=== PATIENT | female | born 1970 | race African-American/Black ===

== ENCOUNTER 2025-01-31 10:08 | Outpatient (REF) | payer OTHER, SELFPAY ==
[2025-01-31 18:46] LABS: MANUAL DIFF FLAG NO
[2025-01-31 19:09] LABS: Basophils Percent Auto 0.5 % (0-2); Eosinophils Absolute Auto 0.1 X10*3/uL (0.0-0.4); Hematocrit 38.3 % (37.0-47.0); Lymphocytes Absolute Auto 1.2 X10*3/uL (1.2-4.9); Lymphocytes Percent Auto 28.9 % (20-40); Mean Corpuscular HGB Conc 31.3 g/dl (31.0-35.0); Mean Corpuscular Hemoglobin 27.9 pg (27.0-33.0); Mean Corpuscular Volume 89.1 fL (80.0-98.0); Monocytes Absolute Auto 0.6 X10*3/uL (0.1-1.2); Monocytes Percent Auto 15.1 % (2-11); Neutrophils Absolute Auto 2.2 x10*3/uL (2.0-8.3); Neutrophils Percent Auto 53.5 % (45-73); Platelet Count 248 X10*3/uL (160-400); Red Cell Distribution Width 12.9 % (11.0-16.0); White Blood Count 4.1 X10*3/uL (4.8-10.8)
[2025-01-31 19:27] LABS: Alanine Aminotransferase 23 U/L (0-31); Aspartate Amino Transferase 25 U/L (5-31); C Reactive Protein 0.26 mg/dL (< or = 0.50); Estimated Glomerular Filt Rate > 60
[2025-01-31 19:58] LABS: Erythrocyte Sedimentation Rate 22 MM/HR (0-20)
[2025-02-01 08:46] LABS: HBS Num1 0.95 mIU/mL (0-7.99); HBc Num1 0.06 S/CO (0.00-0.79); HBsAGNum1 0.28 S/CO (0.00-0.99); Hepatitis B Core Antibody Nonreactive (Nonreactive); Hepatitis B Surface Antigen Negative (Negative); ~HepC Num1 0.12 S/CO (0.00-0.79); ~Hepatitis B Surface Antibody NONREACTIVE (Nonreactive); ~Hepatitis C Antibody Nonreactive (Nonreactive)
[2025-02-03 06:19] LABS: TS Negative Control Passed; TS Panel A 0; TS Panel B 0; TS Positive Control Passed; TSpotTB Negative (Negative)
== END 2025-01-31 10:09 | disposition home or self-care (01) ==
LOC: HO.HKASLDS 10:08
PROVIDERS: PCP Internal Medicine; Visit Provider Internal Medicine Rheumatology
DX: M06.9 Rheumatoid arthritis, unspecified (principal); Z79.899 Other long term (current) drug therapy; Z79.60 Long term (current) use of unspecified immunomodulators and immunosuppressants
CPT/HCPCS: 36415; 82565; 84450; 84460; 85025; 85652; 86140; 86481; 86704; 86706; 86803; 87340

== ENCOUNTER 2025-01-31 10:08 | Outpatient (AMB) | payer OTHER, SELFPAY ==
--- NOTE | 2025-01-31 10:11 | A.OFFVIS_ITS ---
Vital Signs 01/31/25 10:13 Height 5 ft 7 in Weight 170 lb 6.677 oz BMI 26.7 BP 120/80 Blood Pressure Location Lt brachial Position Sitting Pulse 95 Pulse Source Pulse Oximeter Pulse Oximetry (%) 98 Oxygen Delivery Method Room Air Intake Visit Reasons: RA Intake Note: Patient presents today for RA. Accompanied by: Self / Same As Patient Allergies No Known Allergies Allergy (Verified 01/31/25 10:14) HPI HPI RA: Details: She has a URI with chest and nasal congestion. No fevers. She got laid off in June 2024. Gained 20lb. Increase pain in bilateral groins after prolonged sitting. No pain after prolonged lyning down and getting up. [facility] Medical History (Updated 01/31/25 @ 12:38 by Ahmet Young MD) Schwannoma of skin Hypothyroid Family History (Updated 01/26/25 @ 12:35 by April Mattson CMA) Father Heart disease Mother Rheumatoid arthritis Social History (Updated 01/26/25 @ 12:31 by April Mattson CMA) Household Members: Spouse and Children Review of Systems Const All systems reviewed & are unremarkable except as noted in HPI and below Physical Exam Vital Signs: Last Vital Signs Pulse 95 01/31/25 10:13 BP 120/80 01/31/25 10:13 Pulse Ox 98 01/31/25 10:13 Oxygen Delivery Method Room Air 01/31/25 10:13 BMI result Body Mass Index 26.7 Const Other: General: Comfortable CVS: RRR Respiratory: clear to auscultation bilaterally. Good respiratory effort Skin: No lesions seen MSK: No tenderness of any joint. No synovitis. No tenderness to palpate groin region. Normal range of motion of upper extremity and lower extremity. Assessment & Plan Assessment & Plan (1) Rheumatoid arthritis: Comment: Doing well on current regimen. Rheumatology history: Seropositive with positive rheumatoid factor 18, anti CCP antibody 222. She received left knee cortisone injection in November 2020. She has been on methotrexate since April 2021. Code(s): M06.9 - Rheumatoid arthritis, unspecified Category: Medical Plan: Continue methotrexate 15 mg once weekly Continue folic acid 1 mg daily Labs for monitoring of disease and high-risk medication ordered Return to clinic in 3 months (2) Other termite control servicer (current) drug therapy: Code(s): Z79.899 - Other termite control servicer (current) drug therapy Category: Medical Plan: See above (3) Hip pain: Comment: Bilateral after prolonged sitting and then getting up, self-limited. We discussed conservative management. Code(s): M25.559 - Pain in unspecified hip Category: Medical Plan: AAOS hip strengthening program given to patient If pain persists, I will obtain bilateral hip x-rays in order formal PT Return to clinic in 3 months Orders: Orders Erythrocyte Sedimentation Rate Today Z79.899 - Other half-way (current) drug therapy Hepatitis B,C Profile Today Z79.899 - Other termite control servicer (current) drug therapy Alanine Aminotransferase Today Z79.60 - intermediate school teacher (current) use of unspecified immunomodulators and immunosuppressants Aspartate Amino Transferase Today Z79.60 - intermediate school teacher (current) use of unspecified immunomodulators and immunosuppressants Complete Blood Count Auto Diff Today Z79.60 - [facility] (current) use of unspecified immunomodulators and immunosuppressants Creatinine Today Z79.60 - [facility] (current) use of unspecified immunomodulators and immunosuppressants C Reactive Protein Today Z79.899 - Other termite control servicer (current) drug therapy T Spot TB Today M06.9 - Rheumatoid arthritis, unspecified, Z79.899 - Other half-way (current) drug therapy Medications: New folic acid 1 mg PO DAILY 90 tabs 3RF Changed From methotrexate sodium 15 mg (6 x 2.5 mg) PO QWEEK 24 tabs 0RF To methotrexate sodium 15 mg (6 x 2.5 mg) PO QWEEK 72 tabs 0RF 12 weeks Coding Level of Care Code Est Pt Level 4 (74920) Complex EM visit Add On G2211 Diagnoses Rheumatoid arthritis M06.9 Other termite control servicer (current) drug therapy Z79.89 Hip pain M25.559
[2025-01-31 10:13] VITALS: BP 120/80; PULSE 95; O2SAT 98; BMI 26.7
--- OUTSIDE RECORDS SUMMARY | 2025-01-31 11:34 | XMS_ITS | Clinical Summary ---
Author Organization [facility] Address [address] [place] [address] Care Team Providers Care Vacuum Worker Name Role Phone Tae Moscoso MD Primary Care Provider +- [phone] Immunizations Name Administration Dates Next Due Covid-19 (Pfizer) Dilution Required 03/04/2021,0 02/13/2021 Social History Tobacco Use Types Packs/Day Years Used Date Smoking Tobacco: Never Assessed Sex and Gender Information Value Date Recorded Sex Assigned at Female 02/11/2021 3:03 PM EDT Gender Identity Not on file Sexual Orientation Not on file Job Start Date Occupation Industry Not on file Not on file Not on file Plan of Treatment Health Maintenance Due Date Last Done Comments Hepatitis B Vaccines (1 of 3 - 3-dose series) 1970 Hepatitis C Screening 1970 Depression Screening 1982 Preventative Health Evaluation 1988 DTap / Tdap / Td (1 - Tdap) 1989 Cervical Cancer Screening (Pap Smear) 1991 Colon Cancer Screening (Colonoscopy) 2015 Breast Cancer Screening (Mammogram) 2020 Shingrix-Zoster Vaccine (1 o f 2) 2020 COVID-19 Vaccine (2023-2 5 season) 2024 03/04/2021, 02/13/2021 Influenza Vaccine (#1) 2024 Pneumococcal Vaccine Aged Out No long er eligible based on patient's age to complete this topic RSV Ped < 20 months Aged Out No longe r eligible based on patient's age to complete this topic Care Teams Vacuum Worker Relationship Specialty Start Date End Date Tae Moscoso MD PCP - General Internal Medicine 05/11/18
== END 2025-01-31 10:39 | disposition home or self-care (01) ==
LOC: HO.RHES 10:08
PROVIDERS: PCP Internal Medicine; Visit Provider Internal Medicine Rheumatology
DX: M06.9 Rheumatoid arthritis, unspecified (principal); Z79.899 Other long term (current) drug therapy; M25.559 Pain in unspecified hip
CPT/HCPCS: 99214

== ENCOUNTER 2025-05-03 08:27 | Outpatient (REF) | payer OTHER, SELFPAY ==
[2025-05-03 18:19] LABS: Baso%MD 0.5 %; Hematocrit 37.2 % (37.0-47.0); Hemoglobin 11.6 g/dl (12.0-16.0); IG%MD 0.3 %; Lymph%MD 34.1 %; Mean Corpuscular HGB Conc 31.2 g/dl (31.0-35.0); Mean Corpuscular Volume 89.9 fL (80.0-98.0); Mean Platelet Volume 11.5 fL (9.4-12.3); Mono%MD 11.4 %; Neut%MD 50.7 %; Platelet Count 262 X10*3/uL (160-400); Red Blood Count 4.14 X10*6/uL (4.20-5.50); Red Cell Distribution Width 13.2 % (11.0-16.0); White Blood Count 3.7 X10*3/uL (4.8-10.8)
[2025-05-03 18:25] LABS: Alanine Aminotransferase 20 U/L (0-31); Aspartate Amino Transferase 24 U/L (5-31); C Reactive Protein 0.15 mg/dL (< or = 0.50); Estimated Glomerular Filt Rate > 60
[2025-05-03 19:01] LABS: Erythrocyte Sedimentation Rate 12 MM/HR (0-20)
[2025-05-03 19:19] LABS: Atypical Lymph Absolute Manual 0.1 x10*3/uL; Atypical Lymphs Percent Manual 3 % (0-6); Basophils Percent Manual 1 % (0-2); Eosinophils Percent Manual 1 % (0-4); Lymphocytes Absolute Manual 1.5 X10*3/uL (1.2-4.9); Lymphocytes Percent Manual 40 % (20-40); Monocytes Absolute Manual 0.2 X10*3/uL (0.1-1.2); Monocytes Percent Manual 5 % (2-11); Neutrophils Percent Manual 50 % (45-73)
[2025-05-03 19:20] LABS: Band Neutrophils Percent 0 % (3-5); Neutrophils Absolute Manual 1.9 X10*3/uL (2.0-8.3); Platelet Estimate NORMAL (NORMAL); Platelet Morphology Comment NORMAL; RBC Morphology NORMAL
== END 2025-05-03 08:28 | disposition home or self-care (01) ==
LOC: HO.HKASLDS 08:27
PROVIDERS: PCP Internal Medicine; Visit Provider Internal Medicine Rheumatology
DX: M06.9 Rheumatoid arthritis, unspecified (principal); M25.552 Pain in left hip; M25.551 Pain in right hip; Z79.631 Long term (current) use of antimetabolite agent; Z79.899 Other long term (current) drug therapy
CPT/HCPCS: 36415; 82565; 84450; 84460; 85007; 85027; 85652; 86140

== ENCOUNTER 2025-05-03 08:27 | Outpatient (AMB) | payer OTHER, SELFPAY ==
--- NOTE | 2025-05-03 08:28 | MHC.OFFVIS ---
Vital Signs 05/03/25 08:29 Height 5 ft 7 in Weight 169 lb 8 oz BMI 26.5 BP 120/80 Blood Pressure Location Lt brachial Position Sitting Pulse 87 Pulse Source Pulse Oximeter Pulse Oximetry (%) 98 Oxygen Delivery Method Room Air Intake Visit Reasons: 3 Months Intake Note: Patient presents today for RA. Accompanied by: Self / Same As Patient Allergies No Known Allergies Allergy (Verified 05/03/25 08:28) HPI HPI 3 Months: Details: Doing well. No joint pain or joint swelling. No recent infections. [facility] Medical History Schwannoma of skin Hypothyroid Family History Father Heart disease Mother Rheumatoid arthritis Social History Household Members: Spouse and Children Physical Exam Vital Signs: Last Vital Signs Pulse 87 05/03/25 08:29 BP 120/80 05/03/25 08:29 Pulse Ox 98 05/03/25 08:29 Oxygen Delivery Method Room Air 05/03/25 08:29 BMI result Body Mass Index 26.5 Const Other: General: Comfortable CVS: RRR Respiratory: clear to auscultation bilaterally. Good respiratory effort Skin: No lesions seen MSK: No tenderness of any joint. No synovitis. No tenderness to palpate groin region. Normal range of motion of upper extremity and lower extremity. Assessment & Plan Assessment & Plan (1) Rheumatoid arthritis: Comment: Doing well on current regimen. Recent labs reviewed with patient, which revealed mild leukopenia and mild elevation in ESR, which may be related to URI that patient had in January. Rheumatology history: Seropositive with positive rheumatoid factor 18, anti CCP antibody 222. She received left knee cortisone injection in November 2020. She has been on methotrexate since April 2021. Code(s): M06.9 - Rheumatoid arthritis, unspecified Category: Medical Plan: Continue methotrexate 15 mg once weekly Continue folic acid 1 mg daily Labs for monitoring of disease and high-risk medication ordered. Return to clinic in 3 months (2) Other long term acute care registered nurse (current) drug therapy: Code(s): Z79.899 - Other assisted (current) drug therapy Category: Medical Plan: See above (3) Hip pain: Comment: Bilateral after prolonged sitting and then getting up, self-limited. Range of motion is normal. Resolved with home exercise program. Code(s): M25.559 - Pain in unspecified hip Category: Medical Plan: Discussed the importance of having a regular exercise routine. She will try to keep a consistent routine daily, especially since she is working from home. Return to clinic in 3 months Coding Level of Care Code Est Pt Level 4 (77741) Complex EM visit Add On G2211 Diagnoses Rheumatoid arthritis M06.9 Other long term acute care registered nurse (current) drug therapy Z79.899 Hip pain M25.559
[2025-05-03 08:29] VITALS: BP 120/80; PULSE 87; O2SAT 98; BMI 26.5
--- OUTSIDE RECORDS SUMMARY | 2025-05-03 08:49 | XMS_ITS | Clinical Summary ---
Author Organization [facility] Address [address] [place] [address] Care Team Providers Care Flying Teacher Name Role Phone Tae Moscoso MD Primary Care Provider +- [phone] Immunizations Name Administration Dates Next Due Covid-19 [...] (1 o f 2) 2020 COVID-19 Vaccine ( - 2023-2 5 season) 2024 03/04/2021, 02/13/2021 Influenza Vaccine (Season Ended) 2025 Pneumococcal Vaccine Aged Out No long er eligible based on patient's age to complete this topic RSV Ped < 20 months Aged Out No longe r eligible based on patient's age to complete this topic Care Teams Flying Teacher Relationship Specialty Start Date End Date Tae Moscoso MD PCP - General Internal Medicine 05/11/18
== END 2025-05-03 08:56 | disposition home or self-care (01) ==
LOC: HO.RHES 08:27
PROVIDERS: PCP Internal Medicine; Visit Provider Internal Medicine Rheumatology
DX: M06.9 Rheumatoid arthritis, unspecified (principal); Z79.899 Other long term (current) drug therapy; M25.559 Pain in unspecified hip
CPT/HCPCS: 99214; G2211

== ENCOUNTER 2025-08-09 10:09 | Outpatient (AMB) | payer OTHER, SELFPAY ==
--- NOTE | 2025-08-09 10:13 | A.OFFVIS_ITS ---
Vital Signs 08/09/25 10:14 Height 5 ft 7 in Weight 165 lb 5.547 oz BMI 25.9 BP 120/80 Blood Pressure Location Rt brachial Position Sitting Pulse 67 Pulse Source Pulse Oximeter Pulse Oximetry (%) 100 Oxygen Delivery Method Room Air Intake Visit Reasons: 3 Months Intake Note: Patient presents today for RA. Accompanied by: Self / Same As Patient Allergies No Known Allergies Allergy (Verified 05/03/25 08:28) HPI HPI 3 Months: Details: Stretching before and after treadmill helped reduce hip pain. Sudden turn causes self-limited right groin pain. No joint swelling. No recent infections. She gained weight. [facility] Medical History Schwannoma of skin Hypothyroid Family History Father Heart disease Mother Rheumatoid arthritis Social History Household Members: Spouse and Children Physical Exam Vital Signs: Last Vital Signs Pulse 67 08/09/25 10:14 BP 120/80 08/09/25 10:14 Pulse Ox 100 08/09/25 10:14 Oxygen Delivery Method Room Air 08/09/25 10:14 BMI result Body Mass Index 25.9 Const Other: General: Comfortable CVS: RRR Respiratory: clear to auscultation bilaterally. Good respiratory effort Skin: No lesions seen MSK: Tender right groin region on palpation No synovitis. Normal range of motion of upper extremity and lower extremity. Assessment & Plan Assessment & Plan (1) Rheumatoid arthritis: Comment: Doing well on current regimen. Recent labs reviewed with patient, which revealed mild leukopenia and decrease in hemoglobin, which may be related to bone marrow suppression from methotrexate. Rheumatology history: Seropositive with positive rheumatoid factor 18, anti CCP antibody 222. She received left knee cortisone injection in November 2020. She has been on methotrexate since April 2021. Code(s): M06.9 - Rheumatoid arthritis, unspecified Category: Medical Plan: Continue methotrexate 15 mg once weekly Continue folic acid 1 mg daily Labs for monitoring of disease and high-risk medication ordered. I will consider increasing folic acid to 2 mg daily after reviewing labs. Return to clinic in 3 months (2) Other intermediate project manager (current) drug therapy: Code(s): Z79.899 - Other intermediate project manager (current) drug therapy Category: Medical Plan: See above (3) Hip pain: Comment: Bilateral hip pain has improved to now involving the right hip after instituting a home exercise program. Current right hip pain is self-limited to certain positions and with turning rapidly. She is doing exercises at least 3 times a week. Code(s): M25.559 - Pain in unspecified hip Category: Medical Plan: Discussed the importance of having a regular exercise routine. She will try to keep a consistent routine daily, especially since she is working from home. Right hip x-ray ordered to evaluate for hip pathology Encouraged weight loss. 10 lb weight loss goal for next visit Return to clinic in 3 months (4) Right hip pain: Code(s): M25.551 - Pain in right hip Category: Medical Plan: See above Orders: Orders XR hip RT min 2V Today M25.551 - Pain in right hip Medications: Refilled methotrexate sodium 12.5 mg (5 x 2.5 mg) PO QWEEK 60 tabs 0RF 12 weeks Coding Level of Care Code Est Pt Level 4 (07661) Complex EM visit Add On G2211 Diagnoses Rheumatoid arthritis M06.9 Other care home (current) drug therapy Z79.899 Hip pain M25.559 Right hip pain M25.551
[2025-08-09 10:14] VITALS: BP 120/80; PULSE 67; O2SAT 100; BMI 25.9
--- OUTSIDE RECORDS SUMMARY | 2025-08-09 12:25 | XMS_ITS | Clinical Summary ---
Author Organization [facility] Address [address] [place] [address] Care Team Providers Care Gis Mapping Technician Name Role Phone Tae Moscoso MD Primary Care Provider +- [phone] Immunizations Name Administration Dates Next Due Covid-19 [...] (1 o f 2) 2020 COVID-19 Vaccine (3 2024-2 6 season) 2025 03/04/2021, 02/13/2021 Influenza Vaccine (#1) 2025 Pneumococcal Vaccine Aged Out No long er eligible based on patient's age to complete this topic RSV Ped < 20 months Aged Out No longe r eligible based on patient's age to complete this topic Care Teams Gis Mapping Technician Relationship Specialty Start Date End Date Tae Moscoso MD PCP - General Internal Medicine 05/11/18
== END 2025-08-09 10:38 | disposition home or self-care (01) ==
LOC: HO.RHES 10:10
PROVIDERS: PCP Internal Medicine; Visit Provider Internal Medicine Rheumatology
DX: M06.9 Rheumatoid arthritis, unspecified (principal); Z79.899 Other long term (current) drug therapy; M25.559 Pain in unspecified hip; M25.551 Pain in right hip
CPT/HCPCS: 99214; G2211

== ENCOUNTER 2025-08-09 10:09 | Outpatient (REF) | payer OTHER, SELFPAY ==
[2025-08-09 13:39] LABS: Baso%MD 0.4 %; Eos%MD 2.0 %; Hematocrit 35.7 % (37.0-47.0); Hemoglobin 11.9 g/dl (12.0-16.0); IG%MD 0.2 %; Lymph%MD 32.1 %; Mean Corpuscular HGB Conc 33.3 g/dl (31.0-35.0); Mean Corpuscular Hemoglobin 29.1 pg (27.0-33.0); Mean Corpuscular Volume 87.3 fL (80.0-98.0); Mono%MD 8.7 %; NRBC Abs Auto 0.000 X10*3/uL (0.0-0.012); NRBC Pct Auto 0.0 /100WBC (0.0-0.2); Neut%MD 56.6 %; Platelet Count 249 X10*3/uL (160-400); Red Blood Count 4.09 X10*6/uL (4.20-5.50); White Blood Count 4.5 X10*3/uL (4.8-10.8)
[2025-08-09 13:56] LABS: Alanine Aminotransferase 17 U/L (0-31); Aspartate Amino Transferase 23 U/L (5-31); Estimated Glomerular Filt Rate > 60
[2025-08-09 14:36] LABS: Atypical Lymph Absolute Manual 0.1 x10*3/uL; Atypical Lymphs Percent Manual 2 % (0-6); Eosinophils Absolute Manual 0.1 X10*3/uL (0.0-0.4); Eosinophils Percent Manual 2 % (0-4); Lymphocytes Absolute Manual 1.4 X10*3/uL (1.2-4.9); Lymphocytes Percent Manual 30 % (20-40); Monocytes Absolute Manual 0.4 X10*3/uL (0.1-1.2); Monocytes Percent Manual 9 % (2-11); Neutrophils Percent Manual 57 % (45-73)
[2025-08-09 14:39] LABS: RBC Morphology NORMAL
[2025-08-09 14:40] LABS: Band Neutrophils Percent 0 % (3-5); Large Platelet PRESENT; Neutrophils Absolute Manual 2.6 X10*3/uL (2.0-8.3)
== END 2025-08-09 10:10 | disposition home or self-care (01) ==
LOC: HO.HKASLDS 10:09
PROVIDERS: PCP Internal Medicine; Visit Provider Internal Medicine Rheumatology
DX: M06.00 Rheumatoid arthritis without rheumatoid factor, unspecified site (principal); Z79.631 Long term (current) use of antimetabolite agent; Z79.899 Other long term (current) drug therapy
CPT/HCPCS: 36415; 82565; 84450; 84460; 85007; 85027; 85652; 86140

== ENCOUNTER 2025-11-01 08:28 | Outpatient (REF) | payer OTHER, SELFPAY ==
--- NOTE | ~2025-11-01 | XR_ITS ---
EXAMINATION: XR HIP 2 OR MORE VIEWS RIGHT HISTORY: M25.551 - Pain in right hip COMPARISON: There are no prior studies available for comparison. FINDINGS: Two views of the right hip are submitted. Osseous mineralization is normal. There is no fracture or dislocation. There is mild joint space narrowing. The soft tissues are unremarkable. XR/XR hip RT min 2V IMPRESSION: Mild joint space narrowing. Electronically signed by: Ash Saldivar MD 11/01/2025 11:56 AM [facility]
[2025-11-01 14:11] LABS: MANUAL DIFF FLAG NO
[2025-11-01 14:16] LABS: Hematocrit 38.7 % (37.0-47.0); Hemoglobin 12.4 g/dl (12.0-16.0); Imm Gran Abs Auto 0.03 X10*3/uL (0.00-0.03); Imm Gran Pct Auto 0.6 % (0.0-0.4); Lymphocytes Absolute Auto 1.2 X10*3/uL (1.2-4.9); Mean Corpuscular HGB Conc 32.0 g/dl (31.0-35.0); Mean Corpuscular Hemoglobin 28.6 pg (27.0-33.0); Mean Corpuscular Volume 89.4 fL (80.0-98.0); NRBC Abs Auto 0.000 X10*3/uL (0.0-0.012); NRBC Pct Auto 0.0 /100WBC (0.0-0.2); Platelet Count 293 X10*3/uL (160-400); Red Blood Count 4.33 X10*6/uL (4.20-5.50); White Blood Count 5.2 X10*3/uL (4.8-10.8)
[2025-11-01 15:03] LABS: Alanine Aminotransferase 21 U/L (0-31); Aspartate Amino Transferase 19 U/L (5-31); Estimated Glomerular Filt Rate 58
== END 2025-11-01 08:29 | disposition home or self-care (01) ==
LOC: HO.HMGCX 08:28
PROVIDERS: PCP Internal Medicine; Visit Provider Internal Medicine Rheumatology
DX: M06.9 Rheumatoid arthritis, unspecified (principal); M25.551 Pain in right hip; D72.819 Decreased white blood cell count, unspecified; Z79.631 Long term (current) use of antimetabolite agent; Z71.82 Exercise counseling; Z79.899 Other long term (current) drug therapy
CPT/HCPCS: 36415; 73502; 82565; 84450; 84460; 85025; 85652; 86140

== ENCOUNTER 2025-11-01 08:28 | Outpatient (AMB) | payer OTHER, SELFPAY ==
--- NOTE | 2025-11-01 08:34 | A.OFFVIS_ITS ---
Vital Signs 11/01/25 08:35 Height 5 ft 7 in Weight 169 lb 15.622 oz BMI 26.6 BP 120/80 Blood Pressure Location Rt brachial Position Sitting Pulse 114 H Pulse Source Pulse Oximeter Pulse Oximetry (%) 96 Oxygen Delivery Method Room Air Intake Visit Reasons: 3months Intake Note: Patient presents today for RA. Accompanied by: Self / Same As Patient Allergies No Known Allergies Allergy (Verified 11/01/25 08:41) HPI HPI 3months: Details: R hip pain occurs with certain movements with turning but not all the time. She did home exercise program until Nov. Exercises were helpful. She limps when it hurts. It resolves by the next day. [facility] Medical History Schwannoma of skin Hypothyroid Family History Father Heart disease Mother Rheumatoid arthritis Social History Household Members: Spouse and Children Physical Exam Vital Signs: Last Vital Signs Pulse 114 H 11/01/25 08:35 BP 120/80 11/01/25 08:35 Pulse Ox 96 11/01/25 08:35 Oxygen Delivery Method Room Air 11/01/25 08:35 BMI result Body Mass Index 26.6 Const Other: General: Comfortable CVS: RRR Respiratory: clear to auscultation bilaterally. Good respiratory effort Skin: No lesions seen MSK: Tender right groin region on palpation No synovitis. Normal range of motion of upper extremity and lower extremity. Assessment & Plan Assessment & Plan (1) Rheumatoid arthritis: Comment: Doing well on current regimen. 07/2025 labs reviewed with patient, which reve aled mild leukopenia and decrease in hemoglobin, which may be related to bone marrow suppression from methotrexate. Monitoring Rheumatology history: Seropositive with positive rheumatoid factor 18, anti CCP antibody 222. She received left knee cortisone injection in November 2020. She has been on methotrexate since April 2021. Code(s): M06.9 - Rheumatoid arthritis, unspecified Category: Medical Plan: Continue methotrexate 15 mg once weekly Continue folic acid 1 mg daily Labs for monitoring of disease and high-risk medication ordered. I will consider increasing folic acid to 2 mg daily after reviewing labs. Return to clinic in 3 months (2) Other care home (current) drug therapy: Code(s): Z79.899 - Other superintendent container terminal (current) drug therapy Category: Medical Plan: See above (3) Hip pain: Comment: Bilateral hip pain has improved to now involving the right hip after instituting a home exercise program. Current right hip pain is self-limited to certain positions and with turning rapidly. She has not been compliant with home exer cise program Code(s): M25.559 - Pain in unspecified hip Category: Medical Plan: Discussed the importance of having a regular exercise routine. She will try to keep a consistent routine daily, especially since she is working from home. Right hip x-ray ordered to evaluate for hip pathology-she will get it done today Encouraged weight loss Return to clinic in 3 months (4) Right hip pain: Code(s): M25.551 - Pain in right hip Category: Medical Plan: See above Orders: Orders Alanine Aminotransferase Today Z79.899 - Other care home (current) drug therapy Aspartate Amino Transferase Today Z79.899 - Other superintendent container terminal (current) drug therapy Erythrocyte Sedimentation Rate Today Z79.899 - Other care home (current) drug therapy Complete Blood Count Auto Diff Today Z79.899 - Other care home (current) drug therapy Creatinine Today Z79.899 - Other superintendent container terminal (current) drug therapy C Reactive Protein Today Z79.899 - Other care home (current) drug therapy Medications: Refilled methotrexate sodium 12.5 mg (5 x 2.5 mg) PO QWEEK 60 tabs 0RF 12 weeks Coding Level of Care Code Est Pt Level 4 (25152) Add On Problem Visit Only Diagnoses Rheumatoid arthritis M06.9 Other superintendent container terminal (current) drug therapy Z79.899 Hip pain M25.559 Right hip pain M25.551
[2025-11-01 08:35] VITALS: BP 120/80; PULSE 114; O2SAT 96; BMI 26.6
--- OUTSIDE RECORDS SUMMARY | 2025-11-01 08:42 | XMS_ITS | Clinical Summary ---
Author Organization [facility] Prior to 04/15/25 Address [address] [place] [address] Care Team Providers Care Garment Parts Cutter Hand Name Role Phone Tae Moscoso MD Primary Care Provider [phone] [phone] Immunizations Name Administration Dates Next Due Covid-19 [...] age to complete this topic Care Teams Garment Parts Cutter Hand Relationship Specialty Start Date End Date Tae Moscoso MD PCP - General Internal Medicine 05/11/18
== END 2025-11-01 08:59 | disposition home or self-care (01) ==
LOC: HO.RHES 08:28
PROVIDERS: PCP Internal Medicine; Visit Provider Internal Medicine Rheumatology
DX: M06.9 Rheumatoid arthritis, unspecified (principal); Z79.899 Other long term (current) drug therapy; M25.559 Pain in unspecified hip; M25.551 Pain in right hip
CPT/HCPCS: 99214; G2211

== ENCOUNTER → 2025-11-01 09:54 | Outpatient (BNV) | payer OTHER, SELFPAY | PROVIDERS: PCP Internal Medicine; Visit Provider Radiology Diagnostic Radiology | DX: M16.11 Unilateral primary osteoarthritis, right hip (principal) | CPT/HCPCS: 73502 ==